=== PATIENT | female | born 1995 | race Two or more races ===

== ENCOUNTER 2021-10-09 08:38 | Emergency (ER) | payer SELFPAY ==
[~2021-10-09] VITALS: Ht 152.4 cm; Wt 45.4 kg
[2021-10-09 08:39] VITALS: BP 104/63
[2021-10-09] MEDS ORDERED: NAPR500T31 PO (09:16)
== END 2021-10-09 09:28 | disposition home or self-care (01) ==
LOC: ER 08:38
DX: S90.01XA Contusion of right ankle, initial encounter (principal); W22.8XXA Striking against or struck by other objects, initial encounter; Y93.89 Activity, other specified; Y92.89 Other specified places as the place of occurrence of the external cause; Y99.8 Other external cause status
CPT/HCPCS: 73610